=== PATIENT | male | born 1985 | race Caucasian/White ===

== ENCOUNTER → 2018-03-20 09:36 | Outpatient (CLI) | payer MEDICAID ==
[2016-04-19 12:16] VITALS: BMI 43.2
[~2018-03-20 09:36] MED LIST: ADIPEX-P37.5 MG PO; HYDROCODONE-APA1 TAB PO; KLONOPIN0.5 MG PO; LEXAPRO10 MG PO; NIASPAN500 MG PO; SEROQUEL25 MG PO
== END | disposition home or self-care (01) ==
LOC: D.MRI 09:36
DX: R51 Headache (principal)